=== PATIENT | male | born 1995 | race Caucasian/White ===

== ENCOUNTER 2017-08-24 00:34 | Emergency (ER) | payer BC ==
[~2017-08-24] VITALS: Ht 180.3 cm; Wt 97.5 kg
[2017-08-24 05:02] VITALS: BP 103/54
== END 2017-08-24 05:02 | disposition home or self-care (01) ==
LOC: ED 00:34
DX: S16.1XXA Strain of muscle, fascia and tendon at neck level, initial encounter (principal); S60.211A Contusion of right wrist, initial encounter; S30.0XXA Contusion of lower back and pelvis, initial encounter; S09.90XA Unspecified injury of head, initial encounter; Y08.89XA Assault by other specified means, initial encounter; Y93.89 Activity, other specified; Y99.8 Other external cause status; Y92.89 Other specified places as the place of occurrence of the external cause
CPT/HCPCS: 72072; 90715; J2405; J3010; J7030